=== PATIENT | female | born 1995 | race Hispanic/Latino ===

== ENCOUNTER 2022-01-16 08:11 | Outpatient (CLI) | payer OTHER ==
[2022-01-16 23:04] LABS: SARS-CoV-2 PCR by NAA Not Detected (NotDetected)
== END 2022-01-16 08:12 | disposition home or self-care (01) ==
LOC: CSHLAB 08:11
PROVIDERS: ATTEND Family Medicine
DX: Z20.822 Contact with and (suspected) exposure to COVID-19 (principal)
CPT/HCPCS: U0003; U0005

== ENCOUNTER 2022-01-18 20:28 | Inpatient (IN) | payer MEDICAID, OTHER ==
[2022-01-18] MEDS ORDERED: Butorphanol Tartrate 1 MG/ML VIAL SLOW IVP PRN (21:31)
[2022-01-18] MEDS ORDERED: Acetaminophen 500 MG TAB PO PRN (21:31)
[2022-01-18] MEDS ORDERED: Methylergonovine 0.2 MG/ML VIAL IM PRN (21:31)
[2022-01-18] MEDS ORDERED: Ondansetron PF 4 MG/2 ML Vial IVP PRN (21:31)
[2022-01-18] MEDS ORDERED: Ibuprofen 800 MG TAB PO PRN (21:31)
[2022-01-18] MEDS ORDERED: Carboprost 250 MCG/ML AMP IM PRN (21:31)
[2022-01-18] MEDS ORDERED: hydrALAZINE 20 MG/ML VIAL SLOW IVP PRN (21:31)
[2022-01-18] MEDS ORDERED: Misoprostol 200 MCG TAB PR PRN (21:31)
[2022-01-18] MEDS ORDERED: Lidocaine 1% (PF) 30 ML VIAL SC PRN (21:31)
[2022-01-18] MEDS ORDERED: Promethazine HCl 25 MG/ML VIAL IM PRN (21:31)
[2022-01-18] MEDS ORDERED: NS w/ Oxytocin 30 units 500 ML IV SCH ×2 (21:45)
[2022-01-18 22:20] LABS: Hemoglobin 12.5 g/dL (12.0-15.5); Mean Corpuscular HGB CONC 34.6 g/dL (32.0-36.0); Mean Corpuscular Volume 86.6 fl (81.6-98.3); Mean Platelet Volume 12.9 fl (7.4-10.4); Platelet Count 215 10x3/uL (150-450); RBC Distribution Width 14.5 % (11.5-14.5); Red Blood Cell (RBC) Count 4.17 10x6/uL (3.90-5.03); White Blood Cell (WBC) Count 10.3 10x3/uL (3.5-10.5)
[2022-01-18 22:44] VITALS: BMI 33.8
[2022-01-18 22:53] LABS: Hep B Surf Ag Non-Reactive S/CO (NonReactive)
[2022-01-18 22:54] LABS: Syphilis Antibody Nonreactive (Nonreactive); Syphilis Antibody Index 0.04 S/CO (<1.00 Non-Reactive)
[2022-01-18 22:56] LABS: HBSAg Index 0.17 S/CO (0-0.99)
[2022-01-19] MEDS ORDERED: Misoprostol 100 MCG TAB VAG SCH
[2022-01-19] MEDS ORDERED: Morphine 4 MG/ML VIAL SLOW IVP SCH (16:00)
[2022-01-19] MEDS ORDERED: Morphine 4 MG/ML VIAL ONE (16:02)
[2022-01-19] MEDS ORDERED: Fentanyl 2 mcg/Bup 0.1% Cadd 100 ML ONE (17:18)
[2022-01-19] MEDS ORDERED: Fentanyl 100 MCG/2 ML VIAL ONE (18:10)
[2022-01-19] MEDS ORDERED: Lactated Ringer's 500 ML IV PRN (18:38)
[2022-01-19] MEDS ORDERED: Ondansetron PF 4 MG/2 ML Vial IVP PRN ×4 (18:38→21:09)
[2022-01-19] MEDS ORDERED: ePHEDrine Sulfate 50 MG/10 ML VIAL SLOW IVP PRN (18:38)
[2022-01-19] MEDS ORDERED: Naloxone HCl 0.4 mg/ml Vial IVP PRN ×6 (18:38→20:41)
[2022-01-19] MEDS ORDERED: Hydrocerin (Eucerin) Cream 120 gm Jar TOP PRN ×3 (18:38→20:41)
[2022-01-19] MEDS ORDERED: diphenhydrAMINE 50 MG/ML VIAL IVP PRN ×3 (18:38→20:41)
[2022-01-19] MEDS ORDERED: Promethazine HCl 25 MG/ML VIAL IM PRN ×3 (18:38→20:41)
[2022-01-19] MEDS ORDERED: Acetaminophen 325 MG TAB PO PRN (18:38)
[2022-01-19] MEDS ORDERED: Fentanyl 2 mcg/Bupivacaine 0.1% Cassette 100 ML EPIDURAL SCH (18:45)
[2022-01-19] MEDS ORDERED: Communication Order-Pharmacy FS SCH ×3 (18:45→20:45)
[2022-01-19] MEDS ORDERED: Famotidine/PF 20 mg/2ml Vial SLOW IVP PRN (19:41)
[2022-01-19] MEDS ORDERED: Bicitra 30 ML UDCUP PO PRN (19:41)
[2022-01-19] MEDS ORDERED: ceFAZolin 2 GM/Dextrose 50 ML IVPB ONE (19:44)
[2022-01-19] MEDS ORDERED: Azithromycin 500 MG VIAL ONE (19:44)
[2022-01-19] MEDS ORDERED: Azithromycin 500 MG in Sodium Chloride 0.9% 250 ML 250 ML IVPB SCH (19:45)
[2022-01-19] MEDS ORDERED: ceFAZolin 2 GM/Dextrose 50 ML 2 GM in Premix Bag 1 BAG IVPB SCH (19:45)
[2022-01-19] MEDS ORDERED: Naloxone HCl 0.4 mg/ml Vial IV PRN ×2 (19:52→20:41)
[2022-01-19] MEDS ORDERED: Ondansetron HCl/PF 4 MG/2 ML Vial IVP PRN ×2 (19:52→20:41)
[2022-01-19] MEDS ORDERED: Promethazine HCl 25 MG SUPP PR PRN ×2 (19:52→20:41)
[2022-01-19] MEDS ORDERED: Fentanyl 100 MCG/2 ML VIAL SLOW IVP PRN ×2 (19:52→20:41)
[2022-01-19] MEDS ORDERED: Meperidine HCl/PF 25 MG/ML VIAL SLOW IVP PRN ×2 (19:52→20:41)
[2022-01-19] MEDS ORDERED: Oxytocin 10 UNITS/ML VIAL ONE (20:02)
[2022-01-19] MEDS ORDERED: Ondansetron PF 4 MG/2 ML Vial ONE (20:02)
[2022-01-19] MEDS ORDERED: Dexamethasone 4 mg/ml Vial ONE (20:02)
[2022-01-19] MEDS ORDERED: Ketorolac Tromethamine 30 MG/ML VIAL ONE (20:03)
[2022-01-19] MEDS ORDERED: Lidocaine 2% MPF 10 ML AMP (For Epidural Use) ONE (20:04)
[2022-01-19] MEDS ORDERED: PHENYLEPHRINE-NS 100 MCG/ML 10 ML SYRINGE ONE (20:23)
[2022-01-19] MEDS ORDERED: Morphine PF 10 MG/10 ML VIAL ONE (20:38)
[2022-01-19] MEDS ORDERED: Bupivacaine PF 0.5% 30 ML VIAL ONE (20:39)
[2022-01-19] MEDS ORDERED: Ketorolac Tromethamine 30 MG/ML VIAL IVP PRN (20:41)
[2022-01-19] MEDS ORDERED: Ketorolac Tromethamine 30 MG/ML VIAL IVP SCH (20:45)
[2022-01-19] MEDS ORDERED: hydrALAZINE 20 MG/ML VIAL SLOW IVP PRN (21:09)
[2022-01-19] MEDS ORDERED: Bisacodyl 10 MG SUPP PR PRN (21:09)
[2022-01-19] MEDS ORDERED: diphenhydrAMINE 25 MG CAP PO PRN (21:09)
[2022-01-19] MEDS ORDERED: Boostrix 0.5 ML (Tdap) VIAL IM ONE (21:09)
[2022-01-19] MEDS ORDERED: Simethicone Chewable 80 MG TAB PO PRN (21:09)
[2022-01-19] MEDS ORDERED: Lanolin Ointment 7 GM TUBE TOP PRN (21:09)
[2022-01-19] MEDS ORDERED: Zolpidem Tartrate 5 MG TAB PO PRN (21:09)
[2022-01-19] MEDS ORDERED: Meperidine HCl/PF 25 MG/ML VIAL ONE (22:40)
[2022-01-20] MEDS ORDERED: Ketorolac Tromethamine 30 MG/ML VIAL IVP SCH (02:00)
[2022-01-20] MEDS: Prenatal Vitamin 1 TAB PO SCH (09:03)
[2022-01-20] MEDS: Docusate 100 MG CAP PO SCH ×2 (09:03→21:45)
[2022-01-20] MEDS: Ferrous Sulfate 325 MG TAB PO SCH ×2 (09:04→22:33)
[2022-01-20] MEDS: Lactated Ringer's 1,000 ML IV SCH ×5 (11:10→22:33)
[2022-01-20] MEDS: HYDROcodone/Acetaminophen 5/325 mg Tablet PO PRN (13:27)
[2022-01-20] MEDS: Ibuprofen 800 MG TAB PO SCH (21:45)
[2022-01-21] MEDS: Ibuprofen 800 MG TAB PO SCH ×3 (05:00→22:09)
[2022-01-21] MEDS: Lactated Ringer's 1,000 ML IV SCH ×2 (07:11→14:03)
[2022-01-21] MEDS: Ferrous Sulfate 325 MG TAB PO SCH ×2 (07:12→21:00)
[2022-01-21] MEDS: Docusate 100 MG CAP PO SCH ×2 (08:54→22:09)
[2022-01-21] MEDS: Prenatal Vitamin 1 TAB PO SCH (08:54)
[2022-01-21] MEDS: HYDROcodone/Acetaminophen 5/325 mg Tablet PO PRN (08:55)
[2022-01-22] MEDS: Ibuprofen 800 MG TAB PO SCH (05:48)
[2022-01-22] MEDS: Lactated Ringer's 1,000 ML IV SCH (06:35)
[2022-01-22 08:01] VITALS: BP 121/63; TEMP 98.3
[2022-01-22] MEDS: Prenatal Vitamin 1 TAB PO SCH (08:58)
[2022-01-22] MEDS: Docusate 100 MG CAP PO SCH (08:58)
[2022-01-22] MEDS: Ferrous Sulfate 325 MG TAB PO SCH (09:01)
== END 2022-01-22 13:20 | disposition home or self-care (01) | DRG 788 ==
LOC: CSHLD/OP 20:28 → CSHLD 23:39 → CSHPP 01-19 23:30
PROVIDERS: ADMIT Obstetrics & Gynecology; ATTEND Obstetrics & Gynecology
PROC: 10D00Z1 Extraction of Products of Conception, Low, Open Approach (ICD-10-PCS; principal; 2022-01-19)
PROC: 10H07YZ Insertion of Other Device into Products of Conception, Via Natural or Artificial Opening (ICD-10-PCS; 2022-01-19)
DX: O42.02 Full-term premature rupture of membranes, onset of labor within 24 hours of rupture (principal); Z3A.38 38 weeks gestation of pregnancy; Z37.0 Single live birth; D64.9 Anemia, unspecified; O99.02 Anemia complicating childbirth; O36.63X0 Maternal care for excessive fetal growth, third trimester, not applicable or unspecified; F32.A Depression, unspecified; O99.344 Other mental disorders complicating childbirth; O32.4XX0 Maternal care for high head at term, not applicable or unspecified; O32.8XX0 Maternal care for other malpresentation of fetus, not applicable or unspecified; F41.9 Anxiety disorder, unspecified
CPT/HCPCS: 36415; 51702; 85027; 86780; 86850; 86900; 86901; 87340; 99285; J0595; J1100; J1885; J2175; J2270; J2274; J2405; J2590; S0020